=== PATIENT | female | born 1985 | race Caucasian/White ===

== ENCOUNTER 2018-11-03 03:37 | Inpatient (IN) | payer OTHER ==
[~2018-11-03] VITALS: Ht 154.9 cm; Wt 59.0 kg
[2018-11-03] MEDS ORDERED: NIFEdipine 10 MG CAPSULE PO ONE ×2 (04:30→05:45)
[2018-11-03] MEDS: RINGERS SOLUTION,LACTATED 1,000 ML IV SCH ×2 (04:55→06:47)
[2018-11-03] MEDS ORDERED: PREN-134 PO (05:15)
[2018-11-03 05:16] VITALS: BP 96/59
[2018-11-03] MEDS ORDERED: ONDANSETRON HCL 4 MG/2 ML VIAL IVP ONE (08:00)
[2018-11-03] MEDS ORDERED: RINGERS SOLUTION,LACTATED 1,000 ML IV SCH (08:38)
[2018-11-03] MEDS ORDERED: RINGERS SOLUTION,LACTATED 1,000 ML IV PRN (08:38)
[2018-11-03] MEDS ORDERED: FentaNYL CITRATE-PF 100 MCG/2 ML VIAL IVP PRN ×3 (08:45→12:15)
[2018-11-03] MEDS ORDERED: LIDOCAINE/PF 1% 30 ML VIAL INJ PRN (08:45)
[2018-11-03] MEDS ORDERED: CITRIC ACID/SODIUM CITRATE 30 ML SOLUTION UDCUP PO PRN (08:45)
[2018-11-03] MEDS ORDERED: METOCLOPRAMIDE HCL 5 MG/ML 2 ML VIAL IVP PRN (08:45)
[2018-11-03] MEDS ORDERED: AMPICILLIN SODIUM 2 GM/NS 100 ML IV ONE (09:00)
[2018-11-03 09:09] LABS: BASOPHILS % (AUTO) 0.4 % (0.0-2.0); EOSINOPHILS % (AUTO) 0.3 % (1.0-6.0); HEMATOCRIT 37.9 % (36-46); HEMOGLOBIN 12.8 g/dL (12.0-16.0); LYMPHOCYTES # (AUTO) 1.9 K/uL (1.0-4.8); LYMPHOCYTES % (AUTO) 20.1 % (22.0-44.0); MEAN CORPUSCULAR HEMOGLOBIN 31.5 pg (26.0-34.0); MEAN CORPUSCULAR HGB CONC 33.6 G/dL (31.0-37.0); MEAN CORPUSCULAR VOLUME 94 fL (80-100); MONOCYTES # (AUTO) 0.5 K/uL (0.1-1.0); MONOCYTES % (AUTO) 5.2 % (2.0-9.0); PLATELET COUNT (AUTO)-OB 226 K/uL (150-450); RED BLOOD CELL COUNT(AUTO) 4.05 MIL/uL (4.00-5.20); RED CELL DISTRIBUTION WIDTH 13.4 % (11.5-14.5)
[2018-11-03] MEDS ORDERED: ROPIVACAINE HCL/PF 0.2% 100 ML ED ONE (09:37)
[2018-11-03] MEDS ORDERED: RINGERS SOLUTION,LACTATED 1,000 ML IV ONE (10:51)
[2018-11-03] MEDS ORDERED: SODIUM CHLORIDE 0.9% 1,000 ML IV ONE (10:51)
[2018-11-03] MEDS ORDERED: LIDOCAINE/PF 2% 5 ML VIAL ONE (10:51)
[2018-11-03] MEDS ORDERED: EPHEDrine SULFATE 50 MG/ML VIAL IM ONE (12:00)
[2018-11-03] MEDS ORDERED: MORPHINE SULFATE/PF 0.5 MG/ML 10 ML AMP IVP ONE (12:00)
[2018-11-03] MEDS ORDERED: KETOROLAC TROMETHAMINE 60 MG/2 ML VIAL IM ONE (12:00)
[2018-11-03] MEDS ORDERED: FentaNYL CITRATE-PF 100 MCG/2 ML VIAL IVP ONE (12:00)
[2018-11-03] MEDS ORDERED: OXYTOCIN 10 UNITS/ML VIAL IM ONE (12:00)
[2018-11-03] MEDS ORDERED: MEPERIDINE-PF 25 MG/ML VIAL IVP PRN (12:15)
[2018-11-03] MEDS ORDERED: MORPHINE SULFATE 10 MG/ML SYRINGE IVP PRN (12:15)
[2018-11-03] MEDS ORDERED: HYDROmorphone 2 MG/ML SYRINGE IVP PRN (12:15)
[2018-11-03] MEDS ORDERED: NALBUPHINE HCL 10 MG/ML VIAL IVP PRN ×2 (12:15)
[2018-11-03] MEDS ORDERED: LANOLIN 7 GM OINTMENT TP PRN (12:15)
[2018-11-03] MEDS ORDERED: ACETAMINOPHEN/CODEINE 300-30 MG TABLET PO PRN ×2 (12:15)
[2018-11-03] MEDS ORDERED: ONDANSETRON HCL 4 MG/2 ML VIAL IVP PRN (12:15)
[2018-11-03] MEDS ORDERED: DiphenhydrAMINE HCL 50 MG/ML VIAL IVP PRN (12:15)
[2018-11-03] MEDS ORDERED: NALOXONE HCL 0.4 MG/ML VIAL IVP PRN (12:15)
[2018-11-03] MEDS ORDERED: AMPICILLIN SODIUM 1 GM/NS 50 ML IV SCH (13:00)
[2018-11-03] MEDS: DEXTROSE 5%-0.45% SODIUM CHL 1,000 ML IV SCH ×3 (14:18→22:53)
[2018-11-03] MEDS: ACETAMINOPHEN 1000 MG/ISO-OSM 100 ML IV SCH ×2 (14:34→22:54)
[2018-11-03] MEDS: KETOROLAC TROMETHAMINE 30 MG/ML VIAL IVP SCH (18:07)
[2018-11-03] MEDS ORDERED: OXYGEN THERAPY IH SCH ×2 (20:00)
[2018-11-03] MEDS: OXYGEN THERAPY IH SCH (20:00)
[2018-11-04] MEDS: KETOROLAC TROMETHAMINE 30 MG/ML VIAL IVP SCH (00:45)
[2018-11-04] MEDS: DEXTROSE 5%-0.45% SODIUM CHL 1,000 ML IV SCH (03:49)
[2018-11-04] MEDS: IBUPROFEN 800 MG TABLET PO SCH ×3 (06:56→19:03)
[2018-11-04] MEDS: OXYGEN THERAPY IH SCH ×2 (08:00→20:00)
[2018-11-04] MEDS: MAGNESIUM HYDROXIDE SUSPENSION 30 ML UDCUP PO SCH ×2 (08:19→21:05)
[2018-11-05] MEDS: IBUPROFEN 800 MG TABLET PO SCH ×4 (01:03→19:29)
[2018-11-05] MEDS: OXYGEN THERAPY IH SCH ×2 (08:00→20:00)
[2018-11-05] MEDS: MAGNESIUM HYDROXIDE SUSPENSION 30 ML UDCUP PO SCH ×2 (09:00→19:29)
[2018-11-06] MEDS: IBUPROFEN 800 MG TABLET PO SCH ×2 (01:01→07:28)
[2018-11-06] MEDS ORDERED: IBUP-2071 PO (09:33)
== END 2018-11-06 11:20 | disposition home or self-care (01) | DRG 786 ==
LOC: OBSVTOIN 03:37 → 4S 03:37
PROVIDERS: ADMIT Obstetrics & Gynecology; ATTEND Obstetrics & Gynecology
PROC: 10D00Z1 Extraction of Products of Conception, Low, Open Approach (ICD-10-PCS; principal; 2018-11-03)
DX: O32.1XX0 Maternal care for breech presentation, not applicable or unspecified (principal); O60.14X0 Preterm labor third trimester with preterm delivery third trimester, not applicable or unspecified; Z3A.36 36 weeks gestation of pregnancy; Z37.0 Single live birth
CPT/HCPCS: 86850; 86900; 86901; 87081; J0131; J0290; J0690; J1885; J2274; J2590; J2765; J2795; J3010; J3490; J7030; J7120